=== PATIENT | male | born 1965 ===

== ENCOUNTER → 2022-12-24 08:52 | Outpatient (BNVA) | payer SELFPAY | PROVIDERS: Family Provider Family Medicine; PCP Family Medicine; Visit Provider Orthopaedic Surgery | DX: M19.011 Primary osteoarthritis, right shoulder (principal); M19.012 Primary osteoarthritis, left shoulder | CPT/HCPCS: 73030 ==

== ENCOUNTER → 2024-04-20 11:03 | Outpatient (BNVA) | payer OTHER, SELFPAY | PROVIDERS: Family Provider Family Medicine; PCP Family Medicine; Visit Provider Family Medicine | DX: F41.9 Anxiety disorder, unspecified (principal) | CPT/HCPCS: 80053; 80061; 84439; 84443; 85025 ==

== ENCOUNTER 2024-10-14 09:50 | Outpatient (RCR) | payer OTHER, SELFPAY | END 2024-10-21 23:59 | disposition home or self-care (01) | LOC: SPT 09:50 | PROVIDERS: Visit Provider Nurse Practitioner Family | DX: Z47.1 Aftercare following joint replacement surgery (principal); Z96.611 Presence of right artificial shoulder joint | CPT/HCPCS: 97110; 97161 ==

== ENCOUNTER 2024-11-09 08:16 | Outpatient (RCR) | payer OTHER, SELFPAY | END 2024-11-18 23:59 | disposition home or self-care (01) | LOC: SPT 08:16 | PROVIDERS: Visit Provider Nurse Practitioner Family | DX: Z47.1 Aftercare following joint replacement surgery (principal); Z96.611 Presence of right artificial shoulder joint | CPT/HCPCS: 97110 ==

== ENCOUNTER 2024-12-24 10:41 | Emergency (ER) | payer OTHER, SELFPAY ==
[2024-12-24 10:45] VITALS: BP 111/50; PULSE 38; RESP 20; TEMP 36.8; O2SAT 97; BMI 20.9
--- NOTE | 2024-12-24 10:59 | ECG_ITS ---
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 Measurements Intervals [place] Rate: 67 P: 85 OR: 182 QRS: 76 QRSD: 92 T: 76 QT: 384 QTc: 408 Interpretive Statements SINUS RHYTHM WITH FREQUENT VENTRICULAR PREMATURE COMPLEXES IN A BIGEMINAL PATTERN No previous ECG available for comparison Electronically Signed On 12-24-2024 18:12:07 CDT by Kyler Jenkins M.D. [id number]
--- NOTE | 2024-12-24 11:08 | XRR_ITS ---
PROCEDURE INFORMATION: Exam: XR Right Shoulder Exam date and time: 12/24/2024 11:42 AM Age: 59 years old Clinical indication: Right; Prior surgery; Surgery date: 1-6 months; RT shoulder pain/obvious deformity; HX RT shoulder replacement x 4 mo ago TECHNIQUE: Imaging protocol: Radiologic exam of the right shoulder. Views: 2 or more views. COMPARISON: CR XR shoulder RT min 2V* [id number] 12/24/2022 8:53 AM FINDINGS: Bones/joints: Status post right shoulder arthroplasty. Screw hole through the right humeral shaft are noted. No acute fractures are seen. Evidence of prior acromioplasty or distal clavicular resection again seen. Soft tissues: Normal. XR/XR shoulder RT min 2V* [id number] IMPRESSION: Postsurgical changes of a right shoulder arthroplasty.
--- NOTE | 2024-12-24 11:10 | W.ED.EXTPRO ---
HPI - Extremity Problem General: Chief complaint: Extremity Injury, Upper Stated complaint: right shoulder pain Time Seen by Provider: 12/24/24 11:01 Source: patient Mode of arrival: ambulatory Limitations: no limitations History of Present Illness: This patient initially presented to the emergency department because he developed shoulder pain this morning. He states he was reaching for a coffee cup and felt a sharp pain in his right shoulder and now he cannot move it and is normal range of motion. He has had recent right shoulder arthroplasty in August of last year at [facility]. While in triage the RN noted that his heart rate seemed to be irregular and the monitor showed at 32. He states he was told that he had an irregular heartbeat around the time he had his surgery but has not seen any physician for this condition. He denies any symptoms at this time including chest pain shortness of breath etc. Related Data Home Medications ?Medication ?Instructions ?Recorded ?Confirmed aspirin 81 mg tablet,delayed 81 mg PO DAILY 12/24/24 12/24/24 release ginkgo biloba 40 mg tablet 40 mg PO DAILY 12/24/24 12/24/24 meloxicam 15 mg tablet 15 mg PO DAILY 12/24/24 12/24/24 minocycline 50 mg capsule 50 mg PO DAILY 12/24/24 12/24/24 opckokfp-obj-defjk 150 mcg-vit K1 1 tab PO DAILY 12/24/24 12/24/24 30 mcg-lycop 300 mcg-lutein tablet (Centrum Minis Men 50 Plus) naloxone 4 mg/actuation nasal spray See Rx Instructions .Route .COMPLEX 12/24/24 12/24/24 oxycodone 20 mg tablet 20 mg PO TID PRN Pain 12/24/24 12/24/24 Allergies Allergy/AdvReac Type Severity Reaction Status Date / Time Penicillins Allergy rash Verified 04/20/24 10:18 sulfamethoxazole (From Allergy altered Verified 04/20/24 10:18 Bactrim) mental status trimethoprim (From Bactrim) Allergy altered Verified 04/20/24 10:18 mental status [facility] ED PFSH: Medical History (Updated 12/24/24 @ 13:57 by Alexys Le DO) Cannabis use disorder Alcohol use disorder, moderate, dependence Tobacco use disorder, moderate, dependence Hx of staphylococcal infection Sebaceous cyst Chronic pain History of ADHD Surgical History (Updated 07/31/24 @ 10:34 by Charan Snider MD) History of surgery of liver Family History Grandfather Heart disease Mother Skin cancer Social History (Updated 04/20/24 @ 21:38 by Charan Snider MD) Smoking and tobacco/nicotine status: current every day tobacco/nicotine user cigarettes [ Other cigarette details: 3 PPD] Alcohol intake: current Alcohol type: beer Substance/Drug Use: current Substance/Drug use frequency: daily Other substance/drug use details: 3-4 joints/day Physical Exam Narrative: EXAM NARRATIVE: Patient is alert no acute distress answers questions in a goal-directed fashion and appears to be quite comfortable. Const: COMMON NORMALS: no acute distress, average body habitus and patient oriented x3 GENERAL APPEARANCE: cooperative and comfortable HENMT: COMMON NORMALS: atraumatic, Normal nasal mucous membranes and turbinates present, moist oral mucous membranes and oropharynx normal HEAD & SCALP: atraumatic FACE & SINUS: face symmetric NOSE: Normal nasal mucous membranes and turbinates present Eye: COMMON NORMALS: Equal, round and reactive pupils present, EOMs intact bilaterally and conjunctivae normal CONJUNCTIVA: Yes conjunctivae normal PUPIL: Yes Equal, round and reactive pupils present Neck/C-Spine: COMMON NORMALS: full ROM, no lymphadenopathy, Thyroid normal and No carotid bruits THYROID: Thyroid normal Chest: COMMONS NORMALS: normal inspection of the chest and normal palpation of entire chest wall Resp: COMMON NORMALS: normal respiratory effort, No retractions, No use of accessory muscles and clear to auscultation bilaterally AUSCULTATION: clear to auscultation bilaterally Cardio: COMMON NORMALS: regular rate, No murmurs present (Cardio) and Peripheral pulses 2+ throughout RATE: regular rate RHYTHM: abnormal rhythm with ectopic beats PERIPHERAL PULSES: Peripheral pulses 2+ throughout GI: COMMON NORMALS: Normal to inspection, nondistended, normoactive bowel sounds present, Soft to palpation and non-tender PALPATION: Yes Soft to palpation Back/Pelvis: COMMON NORMALS: thoracic and lumbar spine normal to inspection, no thoracic nor lumbar tenderness and thoraco-lumbar ROM normal Extremity: NARRATIVE EXTREMITY EXAM: Right shoulder grossly normal in appearance. Has a mild amount of soft tissue swelling in the anterior medial to his humeral head. Appears to be intact normal range of motion. His medial and lateral head of his biceps appear to be engaging without any shortening. He has neurovascular intact distally. Neuro: COMMON NORMALS: patient oriented x3, moves all extremities, no focal motor deficits and no sensory deficits noted Psych: COMMON NORMALS: mental status grossly normal Skin: COMMON NORMALS: no rashes or lesions noted, no wounds and turgor normal GENERAL SKIN EXAM: no rashes or lesions noted and turgor normal Course Reevaluation(s): Reevaluation #1: Patient was reevaluated. He again denies any symptoms of palpitations irregular heartbeat chest pain etc. His shoulder was reexamined. He has less pain and improved motion actively. He still has some residual soft tissue swelling over the medial portion of the right shoulder joint. Again there is no evidence of clinical dislocation, bicipital tendon rupture etc. Reviewed his findings and also discussed cardiology consultation which he is in favor of. Will place a call into on-call cardiology to discuss additional workup. Time: 13:46 Consultations: Consultation #1: Discussed with on-call cardiology they agree that the patient can be scheduled for outpatient consultation and they will complete his workup at that time. Time: 13:56 Vital Signs: Vital signs: Vital Signs Temperature 98.2 F 12/24/24 10:45 Pulse Rate 62 12/24/24 13:15 Respiratory Rate 18 12/24/24 11:12 Blood Pressure 122/55 12/24/24 13:15 Pulse Oximetry 98 12/24/24 13:15 Oxygen Delivery Me thod Room Air 12/24/24 11:12 MDM - Extremity (Nontraumatic) Medical Decision Making This patient presented noted in the HPI. He initially presented because he was doing some light activity this morning felt pain in his right shoulder and was concerned and therefore made his way to the emergency department. At triage the nurse noted that he had an irregular heartbeat and called attention to that. The patient was asymptomatic but had been told he had an irregular heartbeat back in August when he had his shoulder arthroplasty. Clinical evaluation initially did not reveal any deformities of the shoulder other than some mild soft tissue swelling over the medial portion of the right shoulder. Had intact range of motion and intact strength. Electrocardiogram was obtained which showed unifocal PVCs. Workup was engaged to ensure #1 no evidence of any reversible cause of his asymptomatic PVCs that required emergent attention and #2 to ensure that there was no disruption in his right shoulder arthroplasty etc. Radiographs were obtained which were interpreted as being consistent with postsurgical changes but no other findings. He has workup in the emergency department revealed normal electrolytes, normal thyroid function test, normal troponin. This case was reviewed with cardiology who agreed to provide outpatient follow-up. No evidence at this time of any disruption of his right shoulder arthroplasty, bicipital tendon rupture or any other concerning finding. He has right shoulder pain likely due to strain of one of the shoulder girdle soft tissues. This was reviewed with the patient and post ED instructions were given and to include return precautions. A consultation was placed with, cardiology for follow-up and patient was informed that he will be contacted for this follow-up. Lab Data I reviewed the patient's lab results. 12/24/24 11:18 12/24/24 11:18 Radiology Impressions Shoulder X-Ray 12/24/24 11:08 IMPRESSION: Postsurgical changes of a right shoulder arthroplasty. Laboratory Results WBC 9.68 10^3/uL (3.29-11.43) 12/24/24 11:18 RBC 4.62 10^6/uL (3.85-5.65) 12/24/24 11:18 Hgb 14.90 g/dL (11.27-16.99) 12/24/24 11:18 Hct 44.3 % (37-53) 12/24/24 11:18 MCV 95.9 fl (82-101) 12/24/24 11:18 MCH 32.3 pg (27-33) 12/24/24 11:18 MCHC 33.6 g/dL (30-55) 12/24/24 11:18 RDW 13.2 % (12.1-15.1) 12/24/24 11:18 Plt Count 246 10^3/cmm (157-399) 12/24/24 11:18 MPV 9.6 fL (7.4-10.4) 12/24/24 11:18 Neut % (Auto) 65.8 % 12/24/24 11:18 Lymph % (Auto) 20.9 % 12/24/24 11:18 [place] % (Auto) 7.1 % 12/24/24 11:18 Eos % (Auto) 5.1 % 12/24/24 11:18 Baso % (Auto) 0.9 % 12/24/24 11:18 Neut # (Auto) 6.37 10^3/uL (1.8-7.7) 12/24/24 11:18 Lymph # (Auto) 2.0 10^3/uL (0.8-4.8) 12/24/24 11:18 [place] # (Auto) 0.7 10^3/uL (0.2-0.9) 12/24/24 11:18 Eos # (Auto) 0.5 10^3/uL (0.0-0.8) 12/24/24 11:18 Baso # (Auto) 0.1 10^3/uL (0.0-0.1) 12/24/24 11:18 Nucleated RBC % (auto) 0 % 12/24/24 11:18 Nucleated RBCs # 0.0 /100WBC 12/24/24 11:18 Sodium 136 mmol/L (136-145) 12/24/24 11:18 Potassium 4.8 mmol/L (3.5-5.1) 12/24/24 11:18 Chloride 102 mmol/L (98-107) 12/24/24 11:18 Carbon Dioxide 27 mmol/L (22-29) 12/24/24 11:18 Anion Gap 11.8 (5-19) 12/24/24 11:18 BUN 12 mg/dL (8-23) 12/24/24 11:18 Creatinine 0.7 mg/dL (0.7-1.2) 12/24/24 11:18 GFR Calculation 115.0 mL/min (90-130) 12/24/24 11:18 Glucose 72 mg/dL (65-115) 12/24/24 11:18 Calculated Osmolality 280 mOsm/kg (285-295) L 12/24/24 11:18 Calcium 9.8 mg/dL (8.5-10.5) 12/24/24 11:18 Magnesium 2.1 mg/dL (1.7-2.3) 12/24/24 11:18 Troponin T Baseline < 6 ng/L (0-15) 12/24/24 11:18 Troponin T 120 Minute 6.00 ng/L (0-15) 12/24/24 13:11 Delta Troponin T 0.98604 ABS# (0-10) 12/24/24 13:11 TSH 1.81 uIU/mL (0.27-4.20) 12/24/24 11:18 All radiology interpretation(s) finalized by discharge EKG Data EKG 1: I personally reviewed and interpreted this EKG as follows: Interpretation: Contemporaneous review of resting EKG reveals a ventricular of 67 bpm. OH intervals normal, QRS duration is normal, corrected QT interval normal. Normal axis. He has frequent unifocal PVCs. No acute ST-T wave changes noted. EKG 2: I personally reviewed and interpreted this EKG as follows: Interpretation: Second EKG this visit reveals ventricular rate of 58 bpm. Normal OH interval, QRS duration, corrected QT interval. Normal axis. Consistent with sinus bradycardia. Again frequent unifocal PVCs noted. No acute ST-T wave changes noted. Discharge Plan Discharge Patient Disposition: Home Clinical Impression: Pain in right shoulder, Asymptomatic PVCs Condition: Stable Prescriptions: No Action meloxicam 15 mg tablet 15 mg PO DAILY aspirin 81 mg tablet,delayed release (DR/EC) 81 mg PO DAILY ginkgo biloba 40 mg Tablet 40 mg PO DAILY Rx Instructions: give with meal/snack minocycline 50 mg capsule 50 mg PO DAILY oxycodone 20 mg tablet 20 mg PO TID PRN (Reason: Pain) naloxone 4 mg/actuation spray,non-aerosol See Rx Instructions .ROUTE .COMPLEX Rx Instructions: USE DIRECTED. REPEAT EVERY FIVE minutes NEEDED. Call 911. Phyllis Minivazquez Men 50 Plus [phone] mcg Tablet 1 tab PO DAILY Discharge Orders: Discharge ED (Routine); Ordered 12/24/24 Ordered By: Alexys Le Referrals: Linnea Calderón MD [Physician] - 2 weeks (pvc) Discharge Diet: Usual diet Discharge Activity: Increase activity as tolerated and Limit activity as instructed Patient Instructions: Opioid Safety, Pain Management Activity Restrictions/Additional Instructions: As we discussed while you are in the emergency department there was no evidence on your x-rays or examination that suggested a disruption in your shoulder joint. We have recommended a sling for the next 48 hours to help with comfort as well as use of ice pack. If you continue to have pain limited range of motion or any other concerns you are welcome to return to the emergency department or otherwise follow-up with your orthopedic surgeon in [place]. We have also placed a consultation into see cardiology clinic in the next 2 weeks for your irregular heartbeat. You should be contacted early next week for that follow-up appointment. If you develop any chest pains, feeling like you are passing out, shortness of breath or any other concerns return to this or the nearest emergency department. Print Language: Occitan Coding Level of Care Code ED Reporting Consultant for Gus Olson
[2024-12-24 11:12] VITALS: BP 130/65; PULSE 60; RESP 18; O2SAT 100
[2024-12-24 11:23] LABS: Basophils # 0.1 10^3/uL (0.0-0.1); Basophils % 0.9 %; Eosinophils # 0.5 10^3/uL (0.0-0.8); Eosinophils % 5.1 %; Hematocrit 44.3 % (37-53); Lymphocytes % 20.9 %; Mean Corpuscular HGB Conc 33.6 g/dL (30-55); Mean Corpuscular Hemoglobin 32.3 pg (27-33); Mean Corpuscular Volume 95.9 fl (82-101); Mean Platelet Volume 9.6 fL (7.4-10.4); Monocytes # 0.7 10^3/uL (0.2-0.9); Monocytes % 7.1 %; Neutrophils # 6.37 10^3/uL (1.8-7.7); Neutrophils % 65.8 %; Nucleated Red Blood Cells % 0 %; Platelet Count 246 10^3/cmm (157-399); Red Blood Count 4.62 10^6/uL (3.85-5.65); Red Cell Distribution Width 13.2 % (12.1-15.1); White Blood Count 9.68 10^3/uL (3.29-11.43)
[2024-12-24 11:27] VITALS: PULSE 65; O2SAT 97
[2024-12-24 11:42] LABS: Troponin(5th) Baseline < 6 ng/L (0-15)
[2024-12-24 11:49] LABS: Blood Urea Nitrogen 12 mg/dL (8-23); Calcium 9.8 mg/dL (8.5-10.5); Carbon Dioxide 27 mmol/L (22-29); Chloride 102 mmol/L (98-107); Creatinine Clr Calc Pharmacy 114.9137; Glucose 72 mg/dL (65-115); Magnesium 2.1 mg/dL (1.7-2.3); Osmolality Calculated 280 mOsm/kg (285-295); Sodium 136 mmol/L (136-145); Thyroid Stimulating Hormone 1.81 uIU/mL (0.27-4.20)
[2024-12-24 11:50] LABS: Anion Gap 11.8 (5-19); Potassium 4.8 mmol/L (3.5-5.1)
--- NOTE | 2024-12-24 12:13 | PC.PHAR ---
Patient states he took a old valium he had today for pain and a Oxy. I only have a fill date for the oxy.
[2024-12-24 12:42] VITALS: PULSE 61; O2SAT 99
--- NOTE | 2024-12-24 13:10 | ECG_ITS ---
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
[2024-12-24 13:15] VITALS: BP 122/55; PULSE 62; O2SAT 98
[2024-12-24 13:39] LABS: Troponin 5 2HR Delta 0.00001 ABS# (0-10)
[2024-12-24 14:09] VITALS: BP 144/63; PULSE 61; O2SAT 98
--- NOTE | 2024-12-26 09:32 | DCPLANNER ---
Referral sent to heart care: This patient initially presented to the emergency department because he developed shoulder pain this morning. While in triage the RN noted that his heart rate seemed to be irregular and the monitor showed at 32. Discussed with on-call cardiology they agree that the patient can be scheduled for outpatient consultation and they will complete his workup at that time.
== END 2024-12-24 14:10 | disposition home or self-care (01) ==
PROVIDERS: Emergency Provider Emergency Medicine
DX: M25.511 Pain in right shoulder (principal); I49.3 Ventricular premature depolarization; Z79.82 Long term (current) use of aspirin; F17.210 Nicotine dependence, cigarettes, uncomplicated
CPT/HCPCS: 36415; 73030; 80048; 83735; 84443; 84484; 85025; 93005; 99285